=== PATIENT | male | born 1980 | race Caucasian/White ===

== ENCOUNTER 2020-01-11 10:43 | Emergency (ER) | payer OTHER | END 2020-01-11 12:41 | disposition home or self-care (01) | LOC: JVIRT 10:43 | DX: Z03.818 Encounter for observation for suspected exposure to other biological agents ruled out (principal); J06.9 Acute upper respiratory infection, unspecified | CPT/HCPCS: C9803; Q3014-GT; U0003 ==

== ENCOUNTER 2021-05-12 16:18 | Emergency (ER) | payer OTHER ==
[2021-05-12 16:41] VITALS: TEMP 98.6; BMI 34.0
[2021-05-12] MEDS ORDERED: ASPIRIN 81 MG CHEWABLE TABLETS PO ONE (16:44)
[2021-05-12] MEDS ORDERED: ASPIRIN 325 MG TABLET ONE (16:49)
[2021-05-12 17:31] LABS: INR 1.09 (0.83-1.09); PROTHROMBIN TIME (PATIENT) 12.5 SEC (9.7-13.0)
[2021-05-12 17:33] LABS: ACTIVATED PTT 29.1 SECONDS (25.2-36.5)
[2021-05-12 17:38] LABS: ALBUMIN 4.5 g/dl (3.4-5.0); BILIRUBIN,TOTAL 0.9 mg/dl (0.2-1); CALCIUM 9.7 mg/dl (8.5-10); CREATININE 1.1 mg/dl (0.55-1.3); MAGNESIUM 1.9 mg/dL (1.8-2.4); PHOSPHOROUS 3.5 mg/dl (2.5-4.9); TOT PROT 8.2 g/dl (6.4-8.2)
[2021-05-12 18:50] LABS: BASO % 0.5 % (0-2.0); EOS % 0.1 % (0-4.5); HEMATOCRIT 40.3 % (35.4-49); HEMOGLOBIN 13.9 GM/dL (11.7-16.9); LYMPH % 14.1 % (8-40); MCH 28.5 pg (25.7-33.7); MCHC 34.5 g/dl (32.0-35.9); MEAN CELL VOLUME 82.7 fl (80-96); MONO % 4.8 % (3.8-10.2); NEUT % 80.5 % (42.8-82.8); PLATELET COUNT 229 10^3/uL (134-434); RBC 4.87 M/mm3 (4.00-5.60); WHITE BLOOD COUNT 9.5 K/mm3 (4.0-10.0)
[2021-05-12 19:20] LABS: N-TERMINAL BNP 6.1 pg/ml (5-125)
[2021-05-12 20:08] VITALS: BP 125/84; PULSE 68
== END 2021-05-12 20:45 | disposition home or self-care (01) ==
LOC: FER 16:18 → SUPCPDRO 16:18 → FER 20:45
DX: R07.9 Chest pain, unspecified (principal); R06.02 Shortness of breath
CPT/HCPCS: 36415; 71045-TC-FY; 80053; 80061; 83735; 83880; 84100; 84484; 85025; 85610; 85730; 93005; 99285-25